=== PATIENT | female | born 1945 | race Caucasian/White ===

== ENCOUNTER 2020-05-13 00:45 | Outpatient (CLI) | payer MEDICARE, SELFPAY ==
[2020-05-13 19:14] LABS: SARS-CoV-2 RNA PCR Negative
== END 2020-05-13 00:46 | disposition home or self-care (01) ==
LOC: ANHCOVIDDT 00:45
PROVIDERS: PCP Family Medicine; Visit Provider Internal Medicine Gastroenterology
DX: Z01.818 Encounter for other preprocedural examination (principal); Z20.828 Contact with and (suspected) exposure to other viral communicable diseases
CPT/HCPCS: 87635; C9803; U0003

== ENCOUNTER 2020-05-17 01:02 | Day surgery (SDC) | payer MEDICARE, SELFPAY ==
[2020-05-08 15:32] VITALS: BMI 22.6
[2020-05-17 07:52] VITALS: BP 120/58; PULSE 84; RESP 16; TEMP 36.7; O2SAT 97
[2020-05-17] MEDS: LACTATED RINGERS 1,000 ML 150 ML IV CONT (08:02)
--- NOTE | 2020-05-17 08:20 | WPDANESEPPF ---
Anes - Initial Pre Proc Eval Procedure: Operation Date: 05/17/20 09:00 Proposed Procedures p Esophagogastroduodenoscopy - Anand James MD Date/Time: 05/17/20 08:20 Surgeon: Anand James MD Pre Op Diagnosis: Dysphagia Patient Data Age: 74 Gender: F Height: 5 ft 2.5 in Weight: 58.7 kg Last Vital Signs Temp 98.1 F 05/17/20 07:52 Pulse 84 05/17/20 07:52 Resp 16 05/17/20 07:52 BP 120/58 L 05/17/20 07:52 Pulse Ox 97 05/17/20 07:52 Allergies Allergy/AdvReac Type Severity Reaction Status Date / Time levothyroxine AdvReac Mild Nausea Verified 05/17/20 07:50 Home Medications Medication Instructions Recorded Confirmed Type celecoxib 200 mg capsule See Rx Instructions .ROUTE 10/27/19 05/17/20 Rx .COMPLEX #90 cap omega-3 fatty acids 1,000 mg 1,000 mg PO DAILY 10/27/19 05/17/20 History capsule famotidine 20 mg tablet 20 mg PO BID tablet 11/30/19 05/17/20 History multivit with 1 tablet PO DAILY 11/30/19 05/17/20 History rmdfdzbg-afpf-VE-lutein 8 mg iron-400 mcg-300 mcg tablet estradiol 0.5 mg tablet 0.5 mg PO DAILY #90 tablet 12/29/19 05/17/20 Rx Osteo Bi-Flex 1 tab-cap PO BID 05/08/20 05/17/20 History calcium carbonate-vitamin D3 1 tablet PO BID 05/08/20 05/17/20 History [Calcium 600 with Vitamin D3] Patient hx anesthesia problems: none Family hx anesthesia problems: none PMFSH Past Medical History Medical History (Updated 11/10/19 @ 09:30 by Ashley Rowan MD) Arthritis of knee, right ortho visit: 2.17.20 knee injection ( kenalog 20mg/lidocaine 1% (4cc) Chronic right-sided low back pain with left-sided sciatica Community acquired pneumonia of both lungs Screening for colorectal cancer 6.2.20 cologuard negative 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 Bernstein/ 2020/L 4-5, L5-21 Family History Family History (Updated 10/17/17 @ 15:51 by DOCTOR UNKNOWN) Sibling Patient's brother is , Onset Age: 60 Father Family history of cardiovascular disease, Onset Age: 72 Mother Family history of arthritis, Onset Age: 94 Social History Social History Alcohol intake: current Drinks per week: 0 Alcohol use details: 1 DRINK EVERY COUPLE OF MONTHS Substance use: never Substance use type: does not use Living arrangements: alone Spiritual care concerns: No Anes - Eval Final PreProcedure Day of Procedure 05/17/20 08:20 Patient weight: normal Heart: regular rate and rhythm Lungs: clear to auscultation Airway: Mallampati scale class II Neurological: alert and oriented Last oral intake: >/= 8 hours ASA classification: II Emergent: no Anesthetic plan: proceed Anesthesia type and monitoring: general GIVS and standard monitoring Informed Consent: The patient's anesthetic plan and its attendant risks and benefits were discussed with the patient/family/POA. Questions were solicited and answers provided to the satisfaction of the patient/family/POA.
--- NOTE | 2020-05-17 08:22 | WPDGICN ---
Assessment and Plan Assessment and plan (1) Dysphagia: Code(s): R13.10 - Dysphagia, unspecified Status: Acute Assessment and Plan: Patient complains of difficulty swallowing with food catching mid substernal portion of the chest. This seems most consistent with GE reflux disease plan is for EGD to exclude stricture. Further recommendations including treatment will be given after endoscopy. Currently patient is on famotidine. She may benefit from proton pump inhibitor therapy. Anti-reflux measures should be implemented. (2) GERD with esophagitis: Code(s): K21.0 - Gastro-esophageal reflux disease with esophagitis Status: Acute GI Consult Note Consult date/time: 05/17/20 08:22 HPI: Gracie Sebastian is a 74 year old female Complains of difficulty swallowing. She states she has had symptoms for some time. Symptoms of difficulty swallowing have worsened over the last 2 months. She states that foods particularly solid food will hang up in the mid substernal portion of the chest. She also complains of epigastric pain regurgitation. She denies any bleeding or weight loss. Family history is significant for a hiatal hernia in her mother. 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 Bernstein/ 2019/L 4-5, L5-21 Family History Family History (Updated 10/17/17 @ 15:51 by DOCTOR UNKNOWN) Sibling Patient's brother is , Onset Age: 60 Father Family history of cardiovascular disease, Onset Age: 72 Mother Family history of arthritis, Onset Age: 94 Social History Social History Alcohol intake: current Drinks per week: 0 Alcohol use details: 1 DRINK EVERY COUPLE OF MONTHS Substance use: never Substance use type: does not use Living arrangements: alone Spiritual care concerns: No Meds Home Medications and Allergies Home Medications Medication Instructions Recorded Confirmed Type celecoxib 200 mg capsule See Rx Instructions .ROUTE 10/27/19 05/17/20 Rx .COMPLEX #90 cap omega-3 fatty acids 1,000 mg 1,000 mg PO DAILY 10/27/19 05/17/20 History capsule famotidine 20 mg tablet 20 mg PO BID tablet 11/30/19 05/17/20 History multivit with 1 tablet PO DAILY 11/30/19 05/17/20 History twbdjhik-gwzk-PX-lutein 8 mg iron-400 mcg-300 mcg tablet estradiol 0.5 mg tablet 0.5 mg PO DAILY #90 tablet 12/29/19 05/17/20 Rx Osteo Bi-Flex 1 tab-cap PO BID 05/08/20 05/17/20 History calcium carbonate-vitamin D3 1 tablet PO BID 05/08/20 05/17/20 History [Calcium 600 with Vitamin D3] Allergies Allergy/AdvReac Type Severity Reaction Status Date / Time levothyroxine AdvReac Mild Nausea Verified 05/17/20 07:50 Vital Signs Vital Signs - 24 hr 05/17/20 07:52 Temperature 98.1 F Pulse Rate 84 Respiratory Rate 16 Blood Pressure 120/58 L Pulse Oximetry 97 Exam Narrative: Exam Narrative: Physical exam reveals patient to be alert. Vital signs stable. HEENT exam unremarkable. Lungs are clear to auscultation and percussion. Heart is without murmur or extra sounds. Abdominal exam bowel sounds are present soft nontender with no organomegaly. Digital external rectal exam is normal.
[2020-05-17] MEDS: BENZOCAINE (*SP) 60 ML SPRAY CAN (HURRICAINE) 1 SPRAY MUCOUS MEM (08:58)
[2020-05-17 09:08] VITALS: BP 95/58; PULSE 79; RESP 20; O2SAT 100
[2020-05-17 09:18] VITALS: BP 117/65; PULSE 67; RESP 20; O2SAT 97
[2020-05-17 09:28] VITALS: BP 111/65; PULSE 69; RESP 19; O2SAT 99
== END 2020-05-17 09:38 | disposition home or self-care (01) ==
PROVIDERS: PCP Family Medicine; Visit Provider Internal Medicine Gastroenterology
PROC: 0DJ08ZZ Inspection of Upper Intestinal Tract, Via Natural or Artificial Opening Endoscopic (ICD-10-PCS; CPT 43235; principal; 2020-05-17 09:00)
DX: R13.10 Dysphagia, unspecified (principal); K21.00 Gastro-esophageal reflux disease with esophagitis, without bleeding
CPT/HCPCS: 43239; 43450; 87081; C9803; J2704; J7120; U0003

== ENCOUNTER → 2020-06-23 07:49 | Outpatient (CLI) | payer MEDICARE, SELFPAY ==
--- NOTE | ~2020-06-23 | US_ITS ---
EXAMINATION: US right upper quadrant EXAM DATE: 06/23/2020 08:17 INDICATION: Epigastric pain. TECHNIQUE: Multiple grayscale and Doppler images of the abdomen right upper quadrant were obtained (b y a technologist who performed the scan) and subsequently reviewed. There is no prior study for chavo rubio. FINDINGS: The pancreatic head and body are normal in appearance. The pancreatic tail is not visualized. The l iver has normal echogenicity and contour. There are no focal liver lesions identified. There is no evidence of intrahepatic biliary duct dilation. Portal venous flow was seen in the hepatopedal, nor mal direction and has normal Doppler waveform. No right-sided hydronephrosis. Common bile duct measures 3 mm, which is normal. The gallbladder wall is normal in thickness, with ex pected amount of distention. No sonographic evidence of pericholecystic fluid. There is an echogeni c focus in the posterior dependent aspect of the gallbladder which reportedly was nonmobile measuring about 7 mm. This could be a small polyp. There is some other echogenic material, small amount of gal lbladder debris without calcified cholelithiasis. Technologist performing exam reports patient did n ot demonstrate sonographic Lynn's sign. Please note that this sign is less reliable in patients wh o have received pain medication. IMPRESSION: 1. Small gallbladder polyp; consider 6-12 month follow-up right upper quadrant sonogram. Reviewed, dictated and finalized at location D. ESS MANAGER
== END ==
PROVIDERS: PCP Family Medicine; Visit Provider Internal Medicine Gastroenterology
DX: R10.13 Epigastric pain (principal); K82.4 Cholesterolosis of gallbladder
CPT/HCPCS: 76705

== ENCOUNTER → 2020-10-05 11:03 | Outpatient (CLI) | payer MEDICARE, SELFPAY ==
--- NOTE | ~2020-10-05 | CT_ITS ---
EXAMINATION: CT abdomen pelvis wo con DATE: 10/05/2020 11:17 INDICATION: Gastroesophageal reflux disease. TECHNIQUE: Computed tomography (CT) of the abdomen and pelvis was performed without intravenous contr ast. The dose-length product was 297.23 mGy-cm. Automated exposure control and iterative reconstructi on technique were employed. COMPARISON: None. FINDINGS: There is a 3 mm left lower lobe nodule, image 13. There is a 3 mm left lower lobe nodule, i mage 12. There are calcified granulomas in the left lower lobe. Heart size is normal. No significant pleural or pericardial effusion. There is atherosclerosis. No aneurysm. There are surgical changes in the pelvis. No renal stones or hydronephrosis. The liver, spleen, pancreas, adrenal glands and right kidney are unremarkable. There is a 1 cm left r enal cyst. There is advanced lumbar spondylosis with levoscoliosis. No lymphadenopathy. Mild osteoart hritis of the hips. Moderate lumbar spondylosis. There is grade 2 spondylolisthesis at L5-S1. IMPRESSION: 1. No acute abdominal abnormality. 2: Left lower lobe nodules measuring 3 mm or less. Twelve-month follow-up CT chest recommended. Reviewed, dictated and finalized at location B. IMPRESSION: 1. No acute abdominal abnormality. 2: Left lower lobe nodules measuring 3 mm or less. Twelve-month follow-up CT ch est recommended.
== END ==
PROVIDERS: PCP Family Medicine; Visit Provider Family Medicine
DX: E03.9 Hypothyroidism, unspecified (principal); M12.9 Arthropathy, unspecified; M85.80 Other specified disorders of bone density and structure, unspecified site; Z11.59 Encounter for screening for other viral diseases; Z79.899 Other long term (current) drug therapy; K21.9 Gastro-esophageal reflux disease without esophagitis; R91.8 Other nonspecific abnormal finding of lung field
CPT/HCPCS: 74176

== ENCOUNTER → 2020-11-25 00:27 | Outpatient (CLI) | payer MEDICARE, SELFPAY ==
[2020-11-25 19:26] LABS: SARS-CoV-2 RNA PCR Negative
== END ==
PROVIDERS: PCP Family Medicine; Visit Provider Internal Medicine Gastroenterology
DX: Z01.812 Encounter for preprocedural laboratory examination (principal); Z20.822 Contact with and (suspected) exposure to COVID-19
CPT/HCPCS: C9803; U0003; U0005

== ENCOUNTER 2020-11-28 00:24 | Day surgery (SDC) | payer MEDICARE, SELFPAY ==
[2020-11-17 10:04] VITALS: BMI 22.6
[2020-11-28 08:25] VITALS: BP 111/75; PULSE 95; RESP 16; TEMP 36.1; O2SAT 100; BMI 22.6
[2020-11-28] MEDS: LACTATED RINGERS 1,000 ML 150 ML IV CONT (08:35)
--- NOTE | 2020-11-28 09:03 | WPDGICN ---
Assessment and Plan Assessment and plan (1) Diarrhea: Code(s): R19.7 - Diarrhea, unspecified Status: Acute Assessment and Plan: Colonoscopy to be performed today because rather prolonged severe diarrhea. Symptoms have begun to improve with empiric therapy. High fiber supplements recommended at this time. Further recommendations may be given after endoscopy. (2) Gallbladder polyp: Code(s): K82.4 - Cholesterolosis of gallbladder Status: Acute Assessment and Plan: Ultrasound the gallbladder in June 2020 revealed a small gallbladder polyp conservative management initially is suggested with follow-up ultrasound in 6 months. GI Consult Note Consult date/time: 11/28/20 09:03 HPI: Gracie Sebastian is a 75 year old female Presents for colonoscopy. Patient's last colonoscopy was 10 years ago. Apparently was unremarkable. Patient states that she had diarrhea that lasted for 1 month. This is improved 2 weeks ago. Her current bowel habits have returned to normal. She denies any history of abdominal pain. She has had no bleeding. She has had no weight loss. She tried no specific therapy. Stool cultures were obtained she was told these were normal. Bowel habits ultimately returned to normal. Patient's recent history is significant in November of 2019: Guard test was negative. A CT scan unremarkable in June. Ultrasound of the gallbladder was performed in June because of abdominal pain that is resolved. A small gallbladder polyp was identified. EGD because of epigastric pain in May was also unremarkable. Patient's family history is noncontributory. Colonoscopy to be performed today because rather profound diarrhea at the request of the primary care service. 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 Bernstein/ 2019/L 4-5, L5-21 Family History Family History Sibling Patient's brother is , Onset Age: 60 Father Family history of cardiovascular disease, Onset Age: 72 Mother Family history of arthritis, Onset Age: 94 Social History Social History Smoking status: Never smoker Alcohol intake: current Drinks per week: 0 Substance use: never Substance use type: does not use Living arrangements: alone Spiritual care concerns: No Meds Home Medications and Allergies Home Medications Medication Instructions Recorded Confirmed Type multivit with 1 tablet PO DAILY 11/30/19 11/17/20 History jppihbxm-oycq-LG-lutein 8 mg iron-400 mcg-300 mcg tablet estradiol 0.5 mg tablet 0.5 mg PO DAILY #90 tablet 12/29/19 11/17/20 Rx Osteo Bi-Flex 1 tab-cap PO BID 05/08/20 11/17/20 History calcium carbonate-vitamin D3 1 tablet PO BID 05/08/20 11/17/20 History [Calcium 600 with Vitamin D3] celecoxib 200 mg PO DAILY 11/17/20 11/17/20 History psyllium [Metamucil] 1 packet PO DAILY 11/17/20 11/17/20 History omeprazole 20 mg capsule,delayed 20 mg PO DAILY #30 cap 11/22/20 11/28/20 Rx release Vital Signs Vital Signs - 24 hr 11/28/20 08:25 Temperature 97.0 F L Pulse Rate 95 Respiratory Rate 16 Blood Pressure 111/75 Pulse
--- NOTE | 2020-11-28 09:14 | WPDANESEPPF ---
Anes - Initial Pre Proc Eval Procedure: Operation Date: 11/28/20 09:30 Proposed Procedures p Colonoscopy - Anand James MD Date/Time: 11/28/20 09:14 Surgeon: Anand James MD Pre Op Diagnosis: diarrhea Patient Data Age: 75 Gender: F Height: 1.6 m Weight: 57.8 kg Last Vital Signs Temp 97.0 F L 11/28/20 08:25 Pulse 95 11/28/20 08:25 Resp 16 11/28/20 08:25 BP 111/75 11/28/20 08:25 Pulse Ox 100 11/28/20 08:25 Home Medications Medication Instructions Recorded Confirmed Type multivit with 1 tablet PO DAILY 11/30/19 11/17/20 History jgihmprl-snzr-XE-lutein 8 mg iron-400 mcg-300 mcg tablet estradiol 0.5 mg tablet 0.5 mg PO DAILY #90 tablet 12/29/19 11/17/20 Rx Osteo Bi-Flex 1 tab-cap PO BID 05/08/20 11/17/20 History calcium carbonate-vitamin D3 1 tablet PO BID 05/08/20 11/17/20 History [Calcium 600 with Vitamin D3] celecoxib 200 mg PO DAILY 11/17/20 11/17/20 History psyllium [Metamucil] 1 packet PO DAILY 11/17/20 11/17/20 History omeprazole 20 mg capsule,delayed 20 mg PO DAILY #30 cap 11/22/20 11/28/20 Rx release Patient hx anesthesia problems: none Family hx anesthesia problems: none PMFSH Past Medical History Medical History Arthritis of knee, right ortho visit: 2.17.20 knee injection ( kenalog 20mg/lidocaine 1% (4cc) Chronic right-sided low back pain with left-sided sciatica Community acquired pneumonia of both lungs Screening for colorectal cancer 6.2.20 cologuard negative 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 Bernstein/ 4-5, L5-21 Family History Family History Sibling Patient's brother is , Onset Age: 60 Father Family history of cardiovascular disease, Onset Age: 72 Mother Family history of arthritis, Onset Age: 94 Social History Social History Smoking status: Never smoker Alcohol intake: current Drinks per week: 0 Substance use: never Substance use type: does not use Living arrangements: alone Spiritual care concerns: No Anes - Eval Final PreProcedure Day of Procedure 11/28/20 09:14 Patient weight: normal Heart: regular rate and rhythm Lungs: clear to auscultation Airway: Mallampati scale class II Neurological: alert and oriented Last oral intake: >/= 8 hours ASA classification: II Emergent: no Anesthetic plan: proceed Anesthesia type and monitoring: general GIVS and standard monitoring Informed Consent: The patient's anesthetic plan and its attendant risks and benefits were discussed with the patient/family/POA. Questions were solicited and answers provided to the satisfaction of the patient/family/POA.
[2020-11-28 10:06] VITALS: BP 83/45; PULSE 71; RESP 16; O2SAT 100
[2020-11-28 10:08] VITALS: BP 94/54
[2020-11-28 10:16] VITALS: BP 111/55; PULSE 70; RESP 20; O2SAT 100
[2020-11-28 10:26] VITALS: BP 127/64; PULSE 72; RESP 20; O2SAT 100
== END 2020-11-28 10:42 | disposition home or self-care (01) ==
PROVIDERS: PCP Family Medicine; Visit Provider Internal Medicine Gastroenterology
PROC: 0DJD8ZZ Inspection of Lower Intestinal Tract, Via Natural or Artificial Opening Endoscopic (ICD-10-PCS; CPT 45378; principal; 2020-11-28 09:30)
DX: K52.831 Collagenous colitis (principal); K64.8 Other hemorrhoids
CPT/HCPCS: 45380; 88305; C9803; J2704; J7120; U0003; U0005

== ENCOUNTER 2021-01-15 11:09 | Outpatient (CLI) | payer MEDICARE, SELFPAY ==
--- NOTE | ~2021-01-15 | XR_ITS ---
EXAMINATION: XR chest 2V DATE: 01/15/2021 11:42 INDICATION: Gastroesophageal reflux disease TECHNIQUE: PA and lateral views of the chest are obtained. COMPARISON: 12/17/2016 FINDINGS: The lungs are free of acute opacities. There is no pleural effusion or pneumothorax. The ca rdiomediastinal silhouette is normal. There is mild thoracic spondylosis. Calcified breast implants a re noted. IMPRESSION: 1. No acute cardiopulmonary abnormality. Reviewed, dictated and finalized at location B.
--- NOTE | 2021-01-15 11:50 | ECG_ITS ---
Measurements Intervals [place] Rate: 61 P: 75 OK: 172 QRS: -23 QRSD: 91 T: 61 QT: 394 QTc: 398 Interpretive Statements SINUS RHYTHM ATRIAL PREMATURE COMPLEX BASELINE ARTIFACT- V3 BORDERLINE ECG Electronically Signed On 01-15-2021 12:26:02 CDT by Tom Dooley D.O.
== END 2021-01-15 11:10 | disposition home or self-care (01) ==
PROVIDERS: PCP Family Medicine
DX: Z01.818 Encounter for other preprocedural examination (principal); R94.31 Abnormal electrocardiogram [ECG] [EKG]
CPT/HCPCS: 71046; 93005

== ENCOUNTER → 2021-01-26 03:59 | Outpatient (CLI) | payer MEDICARE, SELFPAY ==
[2021-01-26 20:12] LABS: SARS-CoV-2 RNA PCR Negative
== END ==
PROVIDERS: PCP Family Medicine; Visit Provider Family Medicine
DX: R68.89 Other general symptoms and signs (principal); Z20.822 Contact with and (suspected) exposure to COVID-19
CPT/HCPCS: C9803; U0003; U0005

== ENCOUNTER → 2021-03-20 13:28 | Outpatient (CLI) | payer MEDICARE, SELFPAY ==
--- NOTE | ~2021-03-20 | DEXA_ITS ---
Bone Density Report Name: Gracie Sebastian Age: 75 Sex: Female Ethnicity: White Date of : 1945 Indication: osteopenia; monitoring treatment; height loss; post menopausal Referring Provider: VIET LITTLE Study: Bone densitometry was performed. Exam Date: March 20, 2021 Accession number: [id number] Bone Density: Region BMD T-score Z-score Classification AP Spine (L1-L4) 1.026 -0.2 2.2 Normal Femoral Neck (Left) 0.732 -1.1 1.0 Osteopenia Total Hip (Left) 0.814 -1.1 0.7 Osteopenia Femoral Neck (Right) 0.694 -1.4 0.7 Osteopenia Total Hip (Right) 0.794 -1.2 0.5 Osteopenia Total Hip Mean 0.804 -1.2 0.6 Osteopenia World Health Organization criteria for BMD impression classify patients as: Normal (T-score at or above -1.0), Osteopenia (T-score between -1.0 and -2.5), or Osteoporosis (T-score at or below -2.5). 10-year Fracture Risk: FRAX not reported because: Treated for osteoporosis Previous Exams: Region Exam Age BMD T-score BMD Change BMD Change Date g/cm2 vs Baseline vs Previous Total Hip(Left) 03/20/2021 75 0.814 -1.1 0.001 0.001 03/18/2019 73 0.813 -1.1 Total Hip(Right) 03/20/2021 75 0.794 -1.2 -0.015 -0.015 03/18/2019 73 0.809 -1.1 *Denotes significance at 95% confidence level, LSC for Total Hip = 0.027 g/cm2 Clinical Information Provided by Patient: Is being treated for osteoporosis Has used the following medications: HRT (i.e. estrogen/hormone therapy), Vitamin D, Calcium Patient maximum height was 64 Menopause Age: 41 Drinks caffeinated beverages Onset of menses at age 10 Number of children 1 Impression: The patient has low bone mass, based on the Right Femoral Neck T-score. No significant bone loss was observed. Discussion: PATIENT UNDER TREATMENT WITH NO SIGNIFICANT BMD LOSS SINCE LAST EXAM. In an untreated patient, BMD typically declines with age. A lack of decline or gain is usually a sign that treatment is efficacious and fracture risk is reduced. It is important to ask patients whether they are taking their medications and to encourage continued and appropriate compliance with their osteoporosis therapies to reduce fracture risk. It is also important to review their risk factors and encourage appropriate calcium and vitamin D intakes, exercise, fall prevention and other lifestyle measures. Follow-Up: Consider a repeat BMD and Vertebral Fracture Assessment (VFA) exam in 2 years or sooner if medically necessary, to re
--- NOTE | ~2021-03-20 | MM_ITS ---
EXAMINATION: MM scrn usha implant BI w philipp HISTORY: Screening mammogram TECHNIQUE: Craniocaudal and mediolateral oblique 3-D tomosynthesis images with implant displacement a nd synthetic 2-D images were generated. Craniocaudal and mediolateral oblique views of the breasts wi thout implant displacement were obtained using full field digital mammography. CAD analysis was submi tted and interpreted. COMPARISON: 04/07/2015 BREAST PARENCHYMAL COMPOSITION: There are scattered areas of fibroglandular density. FINDINGS: There are subglandular silicone implants. There is no evidence of suspicious mass, calcific ation, or architectural distortion to suggest malignancy in either breast. There has been no suspicio us interval change. IMPRESSION: 1. No mammographic evidence of malignancy. 2. Recommend routine screening mammography in one year. BI-RADS Category 1: Negative Reviewed, dictated and finalized at location A.
== END ==
PROVIDERS: PCP Family Medicine; Visit Provider Family Medicine
DX: E03.9 Hypothyroidism, unspecified (principal); Z78.0 Asymptomatic menopausal state; Z12.31 Encounter for screening mammogram for malignant neoplasm of breast; M85.852 Other specified disorders of bone density and structure, left thigh; M85.851 Other specified disorders of bone density and structure, right thigh
CPT/HCPCS: 77063; 77067; 77080

== ENCOUNTER → 2021-11-12 14:10 | Outpatient (CLI) | payer MEDICARE, SELFPAY ==
--- NOTE | ~2021-11-12 | CT_ITS ---
EXAMINATION: CT diagnostic chest wo con DATE: 11/12/2021 14:25 INDICATION: Left lower lobe pulmonary nodules none/ CT abdomen pelvis TECHNIQUE: Computed tomography (CT) of the chest was performed without intravenous contrast. Automate d exposure control and iterative reconstruction technique were employed. Exam dose: 140.78 mGy-cm to too exam DLP. COMPARISON: 01/15/2021 2 view chest / CT abdomen pelvis FINDINGS: There are numerous areas of scarring scattered throughout both lungs, particularly at the a pices and upper lobes, including fibrocalcific scarring at the left apex. There is moderate emphysema. No pulmonary infiltrate or consolidation,. Normal heart size. No pericardial or pleural effusion. Prominent peripheral calcification of the bilateral breast implants. No suspicious osteolytic or osteoblastic lesions are noted. IMPRESSION: Moderate emphysema and bilateral pulmonary scarring; [address] imaging is rec ommended. Reviewed, dictated and finalized at Location A. Reviewed, dictated and finalized at location A. IMPRESSION: Moderate emphysema and bilateral pulmonary scarring; 6 month follo w up CT imaging is recommended.
== END ==
PROVIDERS: PCP Family Medicine; Visit Provider Family Medicine
DX: R91.8 Other nonspecific abnormal finding of lung field (principal); J43.9 Emphysema, unspecified
CPT/HCPCS: 71250

== ENCOUNTER 2021-12-20 13:39 | Outpatient (CLI) | payer MEDICARE, SELFPAY ==
--- NOTE | 2021-12-28 15:46 | WPDPFTINT ---
PFT Procedure Performed PFT Procedure Performed Spirometry with Pre/Post Bronchodilator Plethysmography (Lung Vol) Diffusing Cap (DLCO) Flow Vol Loop PFT Interpretation DOS: 12/20/2021 REQUESTING: Ashley Rowan MD REASON FOR TESTING: chronic cough, emphysema PULMONARY FUNCTION TESTS Results are reliable and reproducible Spirometry: pre bronchodilator FEV1 is 67% predicted, 1.29 L, decreased. Pre bronchodilator FVC is 2.55 L, normal. FEV1/FVC ratio is 51% decreased and this is consistent with airflow obstruction. The FEF 25-75% is 23% predicted, 0.37 L, reduced. After bronchodilator administration there is 11% increase in the FEV1. According to the ATS guidelines, this is not statistically significant as the increase must be 12%, however the absolute amount is 140 ml. The AAX15-07% increases by 29%. Lung volumes: total lung capacity is increased to 125%, mild hyperinflation. Functional reserve capacity is 157%, 4.25 L, increased. ERV is 110%, 0.91 L, normal. Residual volume 155%, 3.37 L increased consistent with moderate air trapping. RV/TLC is increased 57% also consistent with air trapping. Airway resistance increased, 306%. Diffusion: DLCO 71%, mildly reduced.DLCO/VA normal 97%. Flow volume loop: There is scooping of the expiratory limb consistent with airflow obstruction. IMPRESSION: mild airflow obstruction which is severe in the small airways, borderline response to bronchodilator, mild hyperinflation, moderate air trapping and mild diffusion impairment. in the proper clinical setting, this pattern may represent COPD or asthma-COPD overlap. Lack of response to bronchodilator should not preclude use if clinically indicated. Diamante Alas MD
== END 2021-12-20 13:40 | disposition home or self-care (01) ==
PROVIDERS: PCP Family Medicine; Visit Provider Family Medicine
DX: J43.9 Emphysema, unspecified (principal); J44.9 Chronic obstructive pulmonary disease, unspecified
CPT/HCPCS: 94060; 94726; 94729

== ENCOUNTER → 2022-07-02 13:20 | Outpatient (CLI) | payer MEDICARE, SELFPAY ==
--- NOTE | ~2022-07-02 | CT_ITS ---
CT Scan of the Chest without Contrast: Clinical Indication: Abnormal CT Technique: Contiguous sections were acquired throughout the chest without intravenous contrast. Dose reduction technique was used on this scan by utilizing automated exposure control and iterative recon struction technique. The dose-length product (DLP) was 129.09 mGy-cm. COMPARISON: 11/12/2021 Findings: There is no evidence of any significant mediastinal, hilar or axillary lymphadenopathy. The mediastin al soft tissues appear normal. There is no evidence of pleural or pericardial effusion. There are several new nodules in the left lower lobe, the largest of which measures 1 cm in diameter (axial image 62). Additional smaller left lower lobe pulmonary nodule opacities are present (axial im age 74, 102). There is an additional new 1 cm irregular nodule in the right middle lobe (axial image 70). There is a new 2 cm irregular groundglass opacity in the superior segment left lower lobe (axial image 53). There is increased nodularity also in the superior segment left lower lobe (axial images 50, 52). There is a scarring and nodularity bilateral upper lobes otherwise are similar to prior exam . Images through the upper abdomen reveal no abnormalities. Impression: Several new nodular opacities in lungs bilaterally, measuring up to 1 cm in diameter, most notably in the left lower lobe and right middle lobe. Findings could reflect progressing infectious/inflammator y condition versus the possibility of neoplastic/metastatic disease. Correlation with any clinical hi story device. Follow-up CT in 3 have in 6 months recommended to reassess. Tissue sampling could be co nsidered as indicated. Additional extensive upper lobe scarring and nodularity is otherwise similar to prior exam. Reviewed, dictated and finalized at location . 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 Findings coul d reflect progressing infectious/inflammatory condition versus the possibility of neoplastic/metastatic disease. Correlation with any clinical history device. Follow-up CT in 3 have in 6 months recommended to reassess. Tissue sampling co uld be considered as indicated. Additional extensive upper lobe scarring and nodularity is otherwise similar to prior exam.
== END ==
PROVIDERS: PCP Family Medicine; Visit Provider Family Medicine
DX: R91.8 Other nonspecific abnormal finding of lung field (principal)
CPT/HCPCS: 71250

== ENCOUNTER 2022-09-23 13:33 | Outpatient (CLI) | payer MEDICARE, SELFPAY ==
--- NOTE | ~2022-09-23 | CT_ITS ---
CT Scan of the Chest without Contrast: Clinical Indication: Lung nodule Technique: Contiguous sections were acquired throughout the chest without intravenous contrast. Dose reduction technique was used on this scan by utilizing automated exposure control and iterative recon struction technique. The dose-length product (DLP) was 61.00 mGy-cm. COMPARISON: 07/02/2022 Findings: There is no evidence of any significant mediastinal, hilar or axillary lymphadenopathy. The mediastin al soft tissues appear normal. There is no evidence of pleural or pericardial effusion. Biapical scarring is similar to prior exams. There are numerous scattered small irregular pulmonary n odules and focal areas of groundglass opacity. Many of these are stable from prior exam, there are so me nodules which are new/increase, and some which are improved. Images through the upper abdomen reveal no abnormalities. Impression: Numerous small focal irregular pulmonary nodules and focal areas of groundglass opacity, with some re gions improved from prior exam, some new/progressed from prior exam, and many of which are stable. Fi ndings suggests mixed waxing and waning infectious/inflammatory process, rather than neoplastic disea se. Reviewed, dictated and finalized at location . Impression: Numerous small focal irregular pulmonary nodules and focal areas of groundglass opacity, with some regions improved from prior exam, some new/progressed from prior exam, and many of which are stable. Findings suggests mixed waxing and wa stella infectious/inflammatory process, rather than neoplastic disease.
== END 2022-09-23 13:34 | disposition home or self-care (01) ==
PROVIDERS: PCP Family Medicine; Visit Provider Nurse Practitioner Family
DX: R91.8 Other nonspecific abnormal finding of lung field (principal)
CPT/HCPCS: 71250

== ENCOUNTER 2022-12-06 10:14 | Outpatient (CLI) | payer MEDICARE, SELFPAY ==
--- NOTE | ~2022-12-06 | CT_ITS ---
CT Scan of the Chest without Contrast: Clinical Indication: Nonspecific abnormal finding of lung field, COPD Technique: Contiguous sections were acquired throughout the chest without intravenous contrast. Dose reduction technique was used on this scan by utilizing automated exposure control and iterative recon struction technique. The dose-length product (DLP) was 62.11 mGy-cm. COMPARISON: 09/23/2022 Findings: There is no evidence of any significant mediastinal, hilar or axillary lymphadenopathy. The mediastin al soft tissues appear normal. There is no evidence of pleural or pericardial effusion. Biapical scarring is present there are scattered peripheral areas of interstitial thickening and nodu larity, essentially stable from prior exam.. Images through the upper abdomen reveal no abnormalities. Impression: Scattered, predominantly peripheral areas of interstitial thickening and irregular nodularity, simila r to prior exam. Findings suggest acute on chronic infectious process. Biapical scarring. Reviewed, dictated and finalized at [facility]. Impression: Scattered, predominantly peripheral areas of interstitial thickening and irregu lar nodularity, similar to prior exam. Findings suggest acute on chronic infect ious process. Biapical scarring.
== END 2022-12-06 10:15 | disposition home or self-care (01) ==
PROVIDERS: PCP Family Medicine; Visit Provider Nurse Practitioner Family
DX: R91.8 Other nonspecific abnormal finding of lung field (principal)
CPT/HCPCS: 71250

== ENCOUNTER 2023-01-20 11:33 | Outpatient (CLI) | payer MEDICARE, SELFPAY ==
--- NOTE | ~2023-01-20 | XR_ITS ---
EXAMINATION: XR chest 2V DATE: 01/20/2023 11:51 INDICATION: Chronic obstructive pulmonary disease, unspecified. TECHNIQUE: Frontal and lateral views of the chest were obtained. COMPARISON: Chest 2 views 01/15/2021, chest CT 12/06/2022 FINDINGS: There are chronic scattered nodules in all lung zones. No pleural effusion or pneumothorax. The heart size is normal. There are bilateral breast implants. IMPRESSION: 1. Chronic scattered nodules in all lung zones, likely chronic infection. Reviewed, dictated and finalized at location A.
== END 2023-01-20 11:34 | disposition home or self-care (01) ==
PROVIDERS: PCP Family Medicine; Visit Provider Physician Assistant
DX: J44.9 Chronic obstructive pulmonary disease, unspecified (principal); R91.8 Other nonspecific abnormal finding of lung field
CPT/HCPCS: 71046

== ENCOUNTER 2023-02-03 10:55 | Outpatient (CLI) | payer MEDICARE, SELFPAY ==
--- NOTE | 2023-02-03 11:14 | ECG_ITS ---
Measurements Intervals [place] Rate: 63 P: 78 PA: 176 QRS: -9 QRSD: 85 T: 61 QT: 391 QTc: 402 Interpretive Statements SINUS RHYTHM NORMAL ECG COMPARED TO ECG 01/15/2021 11:59:17 NO SIGNIFICANT CHANGES Electronically Signed On 02-03-2023 12:06:08 CDT by Zachary Moulton M.D.
== END 2023-02-03 10:56 | disposition home or self-care (01) ==
PROVIDERS: PCP Family Medicine; Visit Provider Podiatrist Foot & Ankle Surgery
DX: Z01.810 Encounter for preprocedural cardiovascular examination (principal)
CPT/HCPCS: 93005

== ENCOUNTER 2023-06-11 13:54 | Outpatient (CLI) | payer MEDICARE, SELFPAY ==
--- NOTE | ~2023-06-11 | CT_ITS ---
EXAMINATION:CT diagnostic chest wo con DATE: 06/11/2023 14:29 INDICATION: Other disorders of lung. TECHNIQUE: Computed tomography (CT) of the chest was performed without intravenous contrast. Automate d exposure control and iterative reconstruction technique were employed. The dose-length product (DLP ) was 136.35 mGy-cm. COMPARISON: Chest CT 12/06/2022, 11/12/2021 FINDINGS: There is chronic scarring at the lung apices. There is mild bronchiectasis in the inferior lungs. There are chronic scattered nodules in the lungs measuring up to 7 mm in left upper lobe. A ca lcified right lung nodule and calcified right hilar lymph nodes are consistent with old granulomatous disease. No pleural effusion. The heart size is normal. No pericardial effusion. Breast implants are noted. There is a small sliding hernia. Calcifications in the spleen are consistent with old granulo matous disease. There is a 13 mm cyst in left kidney. There is mild thoracic spondylosis and severe l umbar spondylosis. IMPRESSION: 1. Chronic pulmonary nodules and mild bilateral bronchiectasis, likely chronic infection such as Myco bacterium avium intracellulare (AIDAN). Reviewed, dictated and finalized at location E. 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 Chronic pulmonary nodules and mild bilateral bronchiectasis, likely chronic infection such as Mycobacterium avium intracellulare (AIDAN).
== END 2023-06-11 13:55 | disposition home or self-care (01) ==
PROVIDERS: PCP Family Medicine; Visit Provider Internal Medicine Critical Care Medicine
DX: J98.4 Other disorders of lung (principal); J47.9 Bronchiectasis, uncomplicated; R91.8 Other nonspecific abnormal finding of lung field
CPT/HCPCS: 71250

== ENCOUNTER 2023-12-03 09:53 | Outpatient (CLI) | payer MEDICARE, SELFPAY ==
--- NOTE | ~2023-12-03 | XR_ITS ---
XR chest 2V Ordering provider: Yunior Portillo APRN History: 78 years Female with . R06.09 - CONGESTION, COUGH. HX PNEUMONIA . Comparison: January 20, 2023 FINDINGS: Bilateral breast implants. MEDIASTINUM: The cardiac silhouette is not enlarged. LUNGS: No infiltrates, effusions or pneumothorax. Underlying emphysematous changes. OTHER: No free air under the diaphragm. Degenerative changes of the spine. IMPRESSION: No acute cardiopulmonary pathology. Reviewed, dictated and finalized at location A.
== END 2023-12-03 09:54 | disposition home or self-care (01) ==
LOC: ANHIMG 09:54
PROVIDERS: PCP Family Medicine; Visit Provider Nurse Practitioner Family
DX: R05.9 Cough, unspecified (principal); R06.09 Other forms of dyspnea
CPT/HCPCS: 71046

== ENCOUNTER 2023-12-18 13:11 | Outpatient (CLI) | payer MEDICARE, SELFPAY ==
--- NOTE | ~2023-12-18 | XR_ITS ---
Clinical Indication: Cough PA and lateral views of the chest: Comparison: 12/03/2023 Findings: The lungs are clear, without evidence of focal consolidation or pleural effusion. Probable COPD. Cardiomediastinal silhouette is within normal limits. Bones and soft tissues are unremarkable. Impression: Clear lungs. Probable COPD. Reviewed, dictated and finalized at location . Impression: Clear lungs. Probable COPD.
== END 2023-12-18 13:12 | disposition home or self-care (01) ==
PROVIDERS: PCP Family Medicine; Visit Provider Nurse Practitioner Family
DX: R05.9 Cough, unspecified (principal); R06.00 Dyspnea, unspecified
CPT/HCPCS: 71046

== ENCOUNTER 2023-12-20 10:27 | Emergency (ER) | payer MEDICARE, SELFPAY ==
[2023-12-20 10:37] VITALS: BP 127/69; PULSE 76; RESP 16; TEMP 36.5; O2SAT 99
--- NOTE | 2023-12-20 11:01 | ED.DENTAL ---
HPI - Dental/Oral General Chief complaint: Dental/Oral Stated complaint: COUGH/CONGESTION/SWOLLEN GLANDS/MOUTH SORES Time Seen by Provider: 12/20/23 11:01 Source: patient History of Present Illness HPI Narrative: patient presents with complaints of mouth sores that she noticed today. She reports that she has just recently finished a course of antibiotics, and is in the process of taking steroids. She denies any fever, chills, sweats. She does complain that she feels as though her lymph nodes are swollen. Related Data Home Medications Medication Instructions Recorded Confirmed sluwkfcz-vqjg-[id number] 8 mg-folic 400 1 tablet PO DAILY 11/30/19 12/20/23 mcg-K 50 mcg-lutein 300 mcg tablet (Centrum Silver Women) Osteo Bi-Flex 1 tab-cap PO BID 05/08/20 12/20/23 calcium carbonate 600 mg-vitamin 1 tablet PO BID 05/08/20 12/20/23 D3 5 mcg (200 unit) tablet dlaqeefg-gqyxuh-iguup extract 5 2 cap PO BIDWMEAL 09/26/22 12/20/23 mg-6 mg-150 mg capsule (Fruit and Vegetable Daily) lifitegrast 5 % eye drops in a 1 drp EACH EYE QPM 12/02/23 12/20/23 dropperette (Xiidra) budesonide-formoterol HFA 80 2 puff inhalation BID 12/20/23 12/20/23 mcg-4.5 mcg/actuation aerosol inhaler (Breyna) Allergies Allergy/AdvReac Type Severity Reaction Status Date / Time No Known Allergies Allergy Verified 12/20/23 10:29 Review of Systems Review of Systems: All systems reviewed & are unremarkable except as noted in HPI and below Constitutional: Constitutional: Reports no additional constitutional complaints ENT: Reports as per HPI Cardiovascular: Cardiovascular: Reports no additional cardiovascular complaints Respiratory: Respiratory: Reports cough Gastrointestinal: Gastrointestinal: Reports no additional gastrointestinal complaints [facility] Past Medical History Medical History Arthritis of knee, right ortho visit: 07.26.19 knee injection ( kenalog 20mg/lidocaine 1% (4cc) 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 Bernstein/ 2019/L 4-5, L5-21 Family History Family History Sibling Patient's brother is , Onset Age: 60 Father Family history of cardiovascular disease, Onset Age: 72 Mother Family history of arthritis, Onset Age: 94 Social History Social History Smoking status: Never smoker Alcohol intake: current Drinks per week: 0 Alcohol use details: 1 DRINK EVERY COUPLE OF MONTHS Substance use: never Substance use type: does not use Lack of Transportation: No Lack of Food: Never True Current Housing: I Have Housing Concerned About Future Housing: No Difficulty Paying Gas/Electric Bills: No Difficulty Paying for Meds: No Currently Unemployed: No Education: Master's Degree or Higher Difficulty w/ Childcare or Family Care: No Living arrangements: alone Spiritual care concerns: No Exam Const: General: cooperative, no acute distress, alert and awake Orientation/consciousness: oriented to person, oriented to place and oriented to time HENMT: Head: normal to inspection Mouth: Yes other ( Multiple blisters noted to tongue) Eyes: General: appearance normal, both eyes and all related structures Resp: Effort & Inspection: normal respiratory effort and able to speak in complete sentences Auscultation: clear to auscultation bilaterally, no crackles, no rales
== END 2023-12-20 11:13 | disposition home or self-care (01) ==
PROVIDERS: Emergency Provider Nurse Practitioner Family; PCP Nurse Practitioner Family
DX: B08.4 Enteroviral vesicular stomatitis with exanthem (principal); J44.9 Chronic obstructive pulmonary disease, unspecified; M17.11 Unilateral primary osteoarthritis, right knee; M47.812 Spondylosis without myelopathy or radiculopathy, cervical region; M47.816 Spondylosis without myelopathy or radiculopathy, lumbar region
CPT/HCPCS: 99211; G0463

== ENCOUNTER 2024-04-26 13:14 | Outpatient (CLI) | payer MEDICARE, SELFPAY ==
--- NOTE | ~2024-04-26 | XR_ITS ---
XR chest 2V Ordering provider: Yunior Portillo APRN History: 78 years Female with . COUGH X 1 MONTH, HX COPD AND ASTHMA, NON SMOKER, NO SURGERY . Comparison: None. FINDINGS: Bilateral breast implants. MEDIASTINUM: The cardiac silhouette is not enlarged. LUNGS: No infiltrates, effusions or pneumothorax. Emphysematous and fibrotic changes are seen. Apical pleural thickening. OTHER: No free air under the diaphragm. IMPRESSION: No acute cardiopulmonary pathology. Reviewed, dictated and finalized at location A. ION TENDER
== END 2024-04-26 13:15 | disposition home or self-care (01) ==
LOC: ANHIMG 13:19
PROVIDERS: PCP Family Medicine; Visit Provider Nurse Practitioner Family
DX: R05.9 Cough, unspecified (principal)
CPT/HCPCS: 71046

== ENCOUNTER 2024-09-22 13:54 | Outpatient (CLI) | payer MEDICARE, SELFPAY ==
--- NOTE | ~2024-09-22 | MM_ITS ---
EXAMINATION: MM scrn usha implant BI w philipp HISTORY: Screening mammogram TECHNIQUE: Craniocaudal and mediolateral oblique 3-D tomosynthesis images with implant displacement a nd synthetic 2-D images were generated. Craniocaudal and mediolateral oblique views of the breasts wi thout implant displacement were obtained using full field digital mammography. CAD analysis was submi tted and interpreted. COMPARISON: Comparison to multiple prior studies sequentially, with oldest reviewed study dated 03/11. BREAST PARENCHYMAL COMPOSITION: Not dense: There are scattered areas of fibroglandular density. FINDINGS: There is no evidence of suspicious mass, calcification, or architectural distortion to sugg est malignancy in either breast. There has been no suspicious interval change. IMPRESSION: 1. No mammographic evidence of malignancy. 2. Recommend routine screening mammography in one year. BI-RADS Category 1: Negative Reviewed, dictated and finalized at location B.
== END 2024-09-22 13:55 | disposition home or self-care (01) ==
LOC: MICIMG 13:54
PROVIDERS: PCP Family Medicine; Visit Provider Nurse Practitioner Family
DX: Z12.31 Encounter for screening mammogram for malignant neoplasm of breast (principal)
CPT/HCPCS: 77063; 77067

== ENCOUNTER 2025-03-23 11:30 | Emergency (ER) | payer MEDICARE, SELFPAY ==
--- NOTE | ~2025-03-23 | XR_ITS ---
EXAMINATION: XR chest 2V DATE: 03/23/2025 11:57 INDICATION: Shortness breath, cough, congestion and chest pressure TECHNIQUE: PA and lateral views of the chest were obtained. COMPARISON: Chest radiograph dated 04/26/[address] dated 06/11/2023 FINDINGS: Stable appearance of moderate biapical and mild bibasilar pleural-parenchymal scarring. Again seen is a subtle scattered reticulonodular opacities in the right upper, left mid and bilateral lower lung zones. Also unchanged is mild perihilar bronchial wall thickening. No new airspace opacities, pulmonary edema, pleural effusion or pneumothorax. The cardiomediastinal silhouette is normal. Capsular calcifications associated with bilateral breast implants. Mild thoracic and severe upper lumbar spondylosis. IMPRESSION: 1. Stable appearance of chronic biapical and bibasilar pleural-parenchymal scarring and scattered bilateral reticulonodular opacities with perihilar bronchial wall thickening which are likely sequela of chronic infection. No other evident acute cardiopulmonary disease. Reviewed, dictated and finalized at location A. IMPRESSION: 1. Stable appearance of chronic biapical and bibasilar pleural-parenchymal scar ring and scattered bilateral reticulonodular opacities with perihilar bronchial wall thickening which are likely sequela of chronic infection. No other eviden t acute cardiopulmonary disease.
--- NOTE | 2025-03-23 11:46 | ED.GENADULT ---
HPI - General Adult General Chief complaint: Upper Respiratory Infection Stated complaint: COUGH Source: patient Mode of arrival: ambulatory Limitations: no limitations History of Present Illness HPI narrative: Patient presents for evaluation of respiratory symptoms. She indicates approximately 1 week ago she developed cold symptoms with sinus congestion and nasal drainage. Four days ago she developed a productive cough of yellow sputum with wheezing, shortness of breath, chest tightness /pressure. She is under the care of pulmonology and states that they believe she has asthma. She does not smoke. She was recently around her granddaughter was sick. She has been taking Delsym for symptoms. She has also been using albuterol inhaler as needed. No fever, chills, sore throat, nausea, vomiting, diarrhea. She took a home COVID test yesterday which was negative. Related Data Home Medications ?Medication ?Instructions ?Recorded ?Confirmed ?Last Taken ?Type pdjcnjjg-ecem-pfkq 8 mg-folic 400 1 tablet PO DAILY 11/30/19 12/01/24 11/26/20 History mcg-K 50 mcg-lutein 300 mcg tablet (Centrum Silver Women) Osteo Bi-Flex 1 tab-cap PO BID 05/08/20 12/01/24 11/26/20 History calcium 600 mg (as 1 tablet PO BID 05/08/20 12/01/24 11/26/20 History carbonate)-vitamin D3 5 mcg (200 unit) tablet rcchkezx-cjpszn-wohse extract 5 2 cap PO BIDWMEAL 09/26/22 12/01/24 Unknown History mg-6 mg-150 mg capsule (Fruit and Vegetable Daily) lifitegrast 5 % eye drops in a 1 drp EACH EYE QPM 12/02/23 12/01/24 Unknown History dropperette (Xiidra) cranberry 500 mg capsule 500 mg PO DAILY 08/23/24 12/01/24 Unknown History psyllium husk 3.4 gram/5.8 gram 1.65 g PO DAILY 12/01/24 12/01/24 Unknown History oral powder (Metamucil Sugar-Free (aspartame)) Allergies Allergy/AdvReac Type Severity Reaction Status Date / Time No Known Allergies Allergy Verified 03/23/25 11:39 Review of Systems Review of Systems: CONSTITUTIONAL: Denies fever, chills, or sweats. EYES: Denies visual changes, redness, or discharge. ENT: Reports sinus congestion and nasal drainage CARDIOVASCULAR: Denies chest pain, palpitations, or edema. RESPIRATORY: reports cough, wheezing, shortness of breath, chest tightness /pressure GASTROINTESTINAL: Denies abdominal pain, nausea, vomiting, or diarrhea. GENITOURINARY: Denies dysuria or hematuria. SKIN: Denies rash or itching. MUSCULOSKELETAL: Denies back pain, joint pain, or myalgia. NEUROLOGIC: Denies headache, numbness, dizziness, or weakness. PSYCHIATRIC: Denies anxiety or depression. 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 Bernstein/ [place]/L 4-5, L5-21 Family History Family History Sibling Patient's brother is , Onset Age: 60 Father Family history of cardiovascular disease, Onset Age: 72 Mother Family history of arthritis, Onset Age: 94 Social History Social History Smoking status: Never smoker Alcohol intake: current Drinks per week: 0 Alcohol use details: 1 DRINK EVERY COUPLE OF MONTHS Substance use: never Substance use type: does not use Lack of Transportation: No Lack of Food: Never True Current Housing: I Have Housing Concerned About Future Housing: No Difficulty Paying Gas/Electric Bills: No Difficulty Paying for Meds: No Currently Unemployed: No Education: Master's Degree or Higher Difficulty w/ Childcare or Family Care: No Living arrangements: alone Spiritual care concerns: No Exam Narrative: GENERAL: Well-appearing, well-nourished, and in no acute distress. HEAD: Normocephalic, atraumatic. EYES: PERRLA and EOMI. ENT: Nares clear, no rhinorrhea or epistaxis. Mucous membranes moist. Oropharynx without tonsillar hypertrophy exudate or other lesions. Bilateral TMs pearly lugo nonbulging NECK: Supple. No adenopathy or masses. No carotid bruits or JVD CHEST: diminished breath sounds throughout. Mild wheezing noted in right lower lobe. Cough present on exam. HEART: Regular rate and rhythm. No murmur heard. Normal peripheral pulses. ABDOMEN: Soft, nontender, nondistended, normal active bowel sounds. EXTREMITIES: Normal range of motion. No edema. SKIN: Warm, dry, no rash. NEURO: No focal deficits. Alert and oriented x3. PSYCH: Normal mood and affect. Course Course Emergency Course: This is a 79-year-old female who presented for evaluation of respiratory symptoms. COVID and influenza were negative. Chest x-ray with chronic abnormalities with no acute cardiopulmonary disease. She was given steroids and nebulizer treatment. Exam is consistent with bronchitis. Discharge with prednisone. Follow-up with primary provider. Go to the ER for worsening symptoms. Patient in agreement with plan care. Level of Care: Express Care Visit Medical Decision Making Lab Data Labs: Lab Results 03/23/25 Range/Units 12:04 POC Influenza A Ag Negative (Negative) POC Influenza B Ag Negative (Negative) POC SARS CoV-2 Ag Negative (Negative) Imaging Data Radiologist's impression: EXAMINATION: XR chest 2V DATE: 03/23/2025 11:57 INDICATION: Shortness breath, cough, congestion and chest pressure TECHNIQUE: PA and lateral views of the chest were obtained. COMPARISON: Chest radiograph dated 04/26/[address] dated 06/11/2023 FINDINGS: Stable appearance of moderate biapical and mild bibasilar pleural-parenchymal scarring. Again seen is a subtle scattered reticulonodular opacities in the right upper, left mid and bilateral lower lung zones. Also unchanged is mild perihilar bronchial wall thickening. No new airspace opacities, pulmonary edema, pleural effusion or pneumothorax. The cardiomediastinal silhouette is normal. Capsular calcifications associated with bilateral breast implants. Mild thoracic and severe upper lumbar spondylosis. IMPRESSION: 1. Stable appearance of chronic biapical and bibasilar pleural-parenchymal scarring and scattered bilateral reticulonodular opacities with perihilar bronchial wall thickening which are likely sequela of chronic infection. No other evident acute cardiopulmonary disease. Discharge Plan Discharge Clinical Impression: Bronchitis Patient Disposition: Home Condition: Stable Instructions: Antibiotic Form, Acute Bronchitis (ED) Patient Language: Malian Prescriptions: New prednisone 50 mg tablet 50 mg PO DAILY Qty: 5 0RF No Action Metamucil Sugar-Free (aspart) 3.4 gram/5.8 gram powder 1.65 g PO DAILY Centrum Silver Women 8 mg iron-400 mcg-300 mcg tablet 1 tablet PO DAILY Fruit and Vegetable Daily 5-6-150 mg capsule 2 cap PO BIDWMEAL Xiidra 5 % dropperette 1 drp EACH EYE QPM Rx Instructions: administer approximately 12 hours apart cranberry 500 mg capsule 500 mg PO DAILY Rx Instructions: administer with meals calcium carbonate-vitamin D3 [Calcium 600 with Vitamin D3] 600 mg(1,500mg) -200 unit Tablet 1 tablet PO BID Osteo Bi-Flex 1 tab-cap PO BID omeprazole 20 mg capsule,delayed release(DR/EC) See Rx Instructions .ROUTE .COMPLEX Qty: 90 1RF Dose Instruction: Take 1 capsule by mouth once daily Rx Instructions: Take 1 capsule by mouth once daily estradiol 0.5 mg tablet See Rx Instructions .ROUTE .COMPLEX Qty: 90 1RF Dose Instruction: Take 1 tablet by mouth once daily Rx Instructions: Take 1 tablet by mouth once daily celecoxib 200 mg capsule See Rx Instructions .ROUTE .COMPLEX Qty: 90 1RF Dose Instruction: Take 1 capsule by mouth once daily Rx Instructions: Take 1 capsule by mouth once daily albuterol sulfate 90 mcg/actuation HFA aerosol inhaler See Rx Instructions .ROUTE .COMPLEX Qty: 9 2RF Dose Instruction: INHALE 2 PUFFS BY MOUTH EVERY 4 HOURS NEEDED FOR SHORTNESS OF BREATH OR WHEEZING Rx Instructions: INHALE 1-2 PUFFS BY MOUTH EVERY 4-6 HOURS NEEDED FOR SHORTNESS OF BREATH OR WHEEZING fluticasone propionate [Flonase Allergy Relief] 50 mcg/actuation spray,suspension 2 spray intranasal DAILY Qty: 16 5RF Rx Instructions: administer into each nostril Follow-up/Referrals: Ashley Rowan MD [Primary Care Provider, Family Practice] Bandar,Yunior P., CLEARANCE COORDINATOR [Advanced Practice Nurse, Pulmonology] Time of Disposition: 12:23
[2025-03-23] MEDS: IPRATROPIUM 0.5 MG/ALBUTEROL SULFATE 2.5 MG (BASE) AMPUL.NEB 3 ML INHALATION (12:01)
[2025-03-23 12:05] LABS: EDCOVIDSCREEN Negative (Negative); EDINFLUASCREEN Negative (Negative); EDINFLUBSCREEN Negative (Negative)
[2025-03-23 12:42] VITALS: BP 126/59; PULSE 79; RESP 16; TEMP 36.4; O2SAT 95
== END 2025-03-23 12:30 | disposition home or self-care (01) ==
PROVIDERS: Emergency Provider Nurse Practitioner; PCP Family Medicine
DX: J40 Bronchitis, not specified as acute or chronic (principal); Z20.822 Contact with and (suspected) exposure to COVID-19; J44.9 Chronic obstructive pulmonary disease, unspecified; M17.11 Unilateral primary osteoarthritis, right knee; M47.812 Spondylosis without myelopathy or radiculopathy, cervical region; M47.816 Spondylosis without myelopathy or radiculopathy, lumbar region
CPT/HCPCS: 71046; 87426; 87804; 94640; 96372; 99213; G0463; J2919

== ENCOUNTER 2025-04-02 09:56 | Emergency (ER) | payer MEDICARE, SELFPAY ==
--- NOTE | ~2025-04-02 | XR_ITS ---
Examination: XR chest 2V Clinical History: cough and wheezing right lower lobe Comparison: 03/23/2025 Technique: PA and Lateral Findings: Cardiomediastinal silhouette normal size and configuration. Mild chronic scarring. No focal airspace consolidation, edema, or effusions. No acute bony abnormality. Breast implant capsular calcifications. IMPRESSION: 1. No acute cardiopulmonary findings. Reviewed, dictated and finalized at location R.
--- NOTE | 2025-04-02 10:01 | ED.GENADULT ---
HPI - General Adult General Chief complaint: Upper Respiratory Infection Stated complaint: chest and nasal amish, cough, weak Time Seen by Provider: 04/02/25 10:04 Source: patient Mode of arrival: ambulatory Limitations: no limitations History of Present Illness HPI narrative: 71-year-old female patient presents to [facility] with complaints of an ongoing cough. Patient was seen here 10 days ago and received steroids for bronchitis. Patient states that the steroids did help with the breathing but continues to have cough and a lot of sinus drainage still feeling weak. Patient denies any fevers body aches or chills that she is aware of. Patient states she has been taking ckgt-edn-vdnxdzq Mucinex for her symptoms as well as the sinus mute Mucinex. Related Data Home Medications ?Medication ?Instructions ?Recorded ?Confirmed ?Last Taken ?Type vpsqeois-dxug-aboe 8 mg-folic 400 1 tablet PO DAILY 11/30/19 12/01/24 11/26/20 History mcg-K 50 mcg-lutein 300 mcg tablet (Centrum Silver Women) Osteo Bi-Flex 1 tab-cap PO BID 05/08/20 12/01/24 11/26/20 History calcium 600 mg (as 1 tablet PO BID 05/08/20 12/01/24 11/26/20 History carbonate)-vitamin D3 5 mcg (200 unit) tablet lyixqkkx-zxkpeo-dqlqq extract 5 2 cap PO BIDWMEAL 09/26/22 12/01/24 Unknown History mg-6 mg-150 mg capsule (Fruit and Vegetable Daily) lifitegrast 5 % eye drops in a 1 drp EACH EYE QPM 12/02/23 12/01/24 Unknown History dropperette (Xiidra) cranberry 500 mg capsule 500 mg PO DAILY 08/23/24 12/01/24 Unknown History psyllium husk 3.4 gram/5.8 gram 1.65 g PO DAILY 12/01/24 12/01/24 Unknown History oral powder (Metamucil Sugar-Free (aspartame)) Allergies Allergy/AdvReac Type Severity Reaction Status Date / Time No Known Allergies Allergy Verified 04/02/25 10:01 Review of Systems Review of Systems: CONSTITUTIONAL: Denies fever, chills, or sweats. EYES: Denies visual changes, redness, or discharge. ENT: Denies rhinorrhea, congestion, sore throat, or otalgia. CARDIOVASCULAR: Denies chest pain, palpitations, or edema. RESPIRATORY: Positive cough denies dyspnea. GASTROINTESTINAL: Denies abdominal pain, nausea, vomiting, or diarrhea. GENITOURINARY: Denies dysuria or hematuria. SKIN: Denies rash or itching. MUSCULOSKELETAL: Denies back pain, joint pain, or myalgia. NEUROLOGIC: Denies headache, numbness, or weakness. PSYCHIATRIC: Denies anxiety or depression. [facility] Past Medical History Medical History Asthma-COPD overlap syndrome Screening for colorectal cancer 6.. 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 Bernstein/ 2019/L 4-5, L5-21 Family History Family History Sibling Patient's brother is , Onset Age: 60 Father Family history of cardiovascular disease, Onset Age: 72 Mother Family history of arthritis, Onset Age: 94 Social History Social History Smoking status: Never smoker Alcohol intake: current Drinks per week: 0 Alcohol use details: 1 DRINK EVERY COUPLE OF MONTHS Substance use: never Substance use type: does not use Lack of Transportation: No Lack of Food: Never True Current Housing: I Have Housing Concerned About Future Housing: No Difficulty Paying Gas/Electric Bills: No Difficulty Paying for Meds: No Currently Unemployed: No Education: Master's Degree or Higher Difficulty w/ Childcare or Family Care: No Living arrangements: alone Spiritual care concerns: No Comments At the time of my signature I agree with nursing past medical history, surgical, social, and family history. There is no relevant family history pertinent to the presenting complaint. Exam Narrative: GENERAL: Well-appearing, well-nourished, and in no acute distress. HEAD: Normocephalic, atraumatic. EYES: PERRLA and EOMI. ENT: Nares clear, no rhinorrhea or epistaxis. Mucous membranes moist. posterior pharynx with no erythema, tonsillar enlargement, exudates or lesions present. Bilateral TMs are clear no erythema or foreign bodies the canal. NECK: Supple. No lymphadenopathy CHEST: Patient has inspiratory and expiratory wheezing noted to the right lower lobe does sound very tight. Patient does have a mild inspiratory wheezing noted to the left lower lobe. Bilateral upper lobes are clear. No respiratory distress. HEART: Regular rate and rhythm. No murmur heard. Normal peripheral pulses. ABDOMEN: Soft, nontender, nondistended, normal active bowel sounds. EXTREMITIES: Normal range of motion. No edema. SKIN: Warm, dry, no rash. NEURO: No focal deficits. Alert and oriented x3. Course Course Level of Care: Express Care Visit Reevaluation(s) Reevaluation #1: re-evaluated patient after her breathing treatment had completed. Patient's lungs are clear in all 4 lobes after the breathing treatment. Discussed with patient that her x-ray is negative for any pneumonia. Discussed with patient this is most likely an ongoing bronchitis. Discussed with her we will discharge her home with a Z-Deangelo, the low dose steroid, and albuterol inhaler as well as Tessalon Perles for the cough. Discussed with patient she should also increase her vitamin C because we know that vitamin C can help repair the lining of the lungs and help boost her immunity would recommend 2000 mg in the morning and 2000 mg in the evening. Patient verbalized understanding denies any other questions or concerns at this time. Date: 04/02/25 Time: 11:14 Vital Signs Vital signs: Vital Signs Oxygen Delivery Room Air 04/02/25 10:05 Temperature 36.4 C 04/02/25 10:06 Pulse Rate 125 H 04/02/25 10:06 Respiratory Rate 18 04/02/25 10:06 Blood Pressure 116/54 L 04/02/25 10:06 Pulse Oximetry 98 04/02/25 10:06 Oxygen Delivery Room Air 04/02/25 10:06 Vital signs reviewed. Medical Decision Making MDM Narrative Medical decision making narrative: care for patient is to do another x-ray since she continues to have some bilateral lower lobe wheezing just to ensure that there is no pneumonia developing. I do see a need to do any repeat viral testing since her symptoms of being going on for about 3-4 weeks. I think bronchitis diagnosis is a reasonable diagnosis however may consider doing a Z-Deangelo at this time since symptoms have been lasting longer as well as another course of a Medrol Dosepak to help with the coughing. I will reassess patient once this has resulted. Differential Diagnosis Differential Diagnosis: Differential diagnosis: Allergic rhinitis, chronic sinusitis, tonsillitis, acute sinusitis, infectious mononucleosis, seasonal influenza, pertussis, diphtheria, meningococcal disease, viral syndrome, viral bronchitis, RSV, COVID-19 Vital Signs Vital Signs: Vital Signs Oxygen Delivery Room Air 04/02/25 10:05 Temperature 36.4 C 04/02/25 10:06 Pulse Rate 125 H 04/02/25 10:06 Respiratory Rate 18 04/02/25 10:06 Blood Pressure 116/54 L 04/02/25 10:06 Pulse Oximetry 98 04/02/25 10:06 Oxygen Delivery Room Air 04/02/25 10:06 Critical Care Time Critical Care Time Critical Care Time: No Discharge Plan Discharge Clinical Impression: Bronchitis Patient Disposition: Home Condition: Stable Instructions: Antibiotic Form, Acute Bronchitis (ED) Additional Instructions: Acute bronchitis is swelling and irritation in the air passages of your lungs. This irritation may cause you to cough or have other breathing problems. Acute bronchitis often starts because of another viral illness, such as a cold or the flu. The illness spreads from your nose and throat to your windpipe and airways. Bronchitis is often called a chest cold. Acute bronchitis lasts about 2-6 weeks and is usually not a serious illness. AFTER YOU LEAVE: Medicines: Ibuprofen or acetaminophen: These medicines help lower a fever. They are available without a doctor's order. Ask your healthcare provider which medicine is right for you. Ask how much to take and how often to take it. Follow directions. These medicines can cause stomach bleeding if not taken correctly. Ibuprofen can cause kidney damage. Do not take ibuprofen if you have kidney disease, an ulcer, or allergies to aspirin. Acetaminophen can cause liver damage. Do not drink alcohol if you take acetaminophen. Cough medicine: This medicine helps loosen mucus in your lungs and make it easier to cough up. This can help you breathe easier. Inhalers: You may need one or more inhalers to help you breathe easier and cough less. An inhaler gives your medicine in a mist form so that you can breathe it into your lungs. Ask your healthcare provider to show you how to use your inhaler correctly. Steroid medicine: Steroid medicine helps open your air passages so you can breathe easier. Take your medicine as directed. Call your healthcare provider if you think your medicine is not helping or if you have side effects. How to use an inhaler: Shake the inhaler well to make sure you get the correct amount of medicine per puff. Remove the cover from your inhaler's mouthpiece. If you are using a spacer, connect your inhaler to the flat end of the spacer. Exhale as much air from your lungs as you can. Put the mouthpiece in your mouth past your front teeth and rest it on the top of your tongue. Do not block the mouthpiece opening with your tongue. Breathe in through your mouth at a slow and steady rate. As you do this, press the inhaler to release the puff of medicine. Finish breathing in slowly and deeply as you inhale the medicine. When your lungs are full, hold your breath for 10 seconds. Then breathe out slowly through puckered lips or through your nose. If you need to take more puffs, wait at least 1 minute between each puff. Rinse your mouth with water after you use the inhaler. This may keep you from getting a mouth infection or irritation. Follow the instructions that come with your inhaler to clean it. You should clean your inhaler at least once a week. Ways to care for yourself: Avoid alcohol: Alcohol dulls your urge to cough and sneeze. When you have bronchitis, you need to be able to cough and sneeze to clear your air passages. Alcohol also causes your body to lose fluid. This can make the mucus in your lungs thicker and harder to cough up. Avoid irritants in the air: Do not smoke or allow others to smoke around you. Avoid chemicals, fumes, and dust. Wear a face mask if you must work around dust or fumes. Stay inside on days when air pollution levels are high. If you have allergies, stay inside when pollen counts are high. Avoid aerosol products. This includes spray-on deodorant, bug spray, and hair spray. Drink more liquids: Most people should drink at least 8 eight-ounce cups of water a day. You may need to drink more liquids when you have acute bronchitis. Liquids help keep your air passages moist and help you cough up mucus. Get more rest: You may feel like resting more. Slowly start to do more each day. Rest when you feel it is needed. Eat healthy foods: Eat a variety healthy foods every day. Your diet should include fruits, vegetables, breads, and protein (such as chicken, fish, and beans). Dairy products (such as milk, cheese, and ice cream) can sometimes increase the amount of mucus your body makes. Ask if you should decrease your intake of dairy products. Use a humidifier: Use a cool mist humidifier to increase air moisture in your home. This may make it easier for you to breathe and help decrease your cough. Decrease your risk of acute bronchitis: Get the vaccinations you need: Ask your healthcare provider if you should get vaccinated against the flu or pneumonia. Avoid things that may irritate your lungs: Stay inside or cover your mouth and nose with a scarf when you are outside during cold weather. You should also stay inside on days when air pollution levels are high. If you have allergies, stay inside when pollen counts are high. Avoid using aerosol products in your home. This includes spray-on deodorant, bug spray, and hair spray. Avoid the spread of germs: Wash your hands often with soap and water. Carry germ-killing gel with you. You can use the gel to clean your hands when there is no soap and water available. Do not touch your eyes, nose, or mouth unless you have washed your hands first. Always cover your mouth when you cough. Cough into a tissue or your shirtsleeve so you do not spread germs from your hands. Try to avoid people who have a cold or the flu. If you are sick, stay away from others as much as possible. Follow up with your healthcare provider as directed: Write down questions you have so you will remember to ask them during your follow-up visits. Contact your healthcare provider if: You have a fever. Your skin becomes itchy or you have a rash after you take your medicine. Your breathing problems do not go away or get worse. Your cough does not get better with treatment. You cough up blood. You have questions or concerns about your condition or care. Seek care immediately or call 911 if: You faint. Your lips or fingernails turn blue. You feel like you are not getting enough air when you breathe. You have swelling of your lips, tongue, or throat that makes it hard to breathe or swallow. Patient Language: Polish Prescriptions: New azithromycin 250 mg tablet See Rx Instructions .ROUTE .COMPLEX Qty: 6 0RF Rx Instructions: For 250 mg dose pack: take 500 mg today (day 1), then 250 mg for 4 days (days 2-5) methylprednisolone 4 mg tablets,dose pack See Rx Instructions PO .COMPLEX Qty: 21 0RF Rx Instructions: for 6 days albuterol sulfate [Ventolin HFA] 90 mcg/actuation HFA aerosol inhaler 2 puff INHALATION .Q4 hours PRN (Reason: cough) Qty: 18 0RF benzonatate 200 mg capsule 200 mg PO TID PRN (Reason: cough) 10 Days Qty: 30 0RF No Action prednisone 50 mg tablet 50 mg PO DAILY Qty: 5 0RF Metamucil Sugar-Free (aspart) 3.4 gram/5.8 gram powder 1.65 g PO DAILY Centrum Silver Women 8 mg iron-400 mcg-300 mcg tablet 1 tablet PO DAILY Fruit and Vegetable Daily 5-6-150 mg capsule 2 cap PO BIDWMEAL Xiidra 5 % dropperette 1 drp EACH EYE QPM Rx Instructions: administer approximately 12 hours apart cranberry 500 mg capsule 500 mg PO DAILY Rx Instructions: administer with meals calcium carbonate-vitamin D3 [Calcium 600 with Vitamin D3] 600 mg(1,500mg) -200 unit Tablet 1 tablet PO BID Osteo Bi-Flex 1 tab-cap PO BID estradiol 0.5 mg tablet See Rx Instructions .ROUTE .COMPLEX Qty: 90 1RF Dose Instruction: Take 1 tablet by mouth once daily Rx Instructions: Take 1 tablet by mouth once daily celecoxib 200 mg capsule See Rx Instructions .ROUTE .COMPLEX Qty: 90 1RF Dose Instruction: Take 1 capsule by mouth once daily Rx Instructions: Take 1 capsule by mouth once daily albuterol sulfate 90 mcg/actuation HFA aerosol inhaler See Rx Instructions .ROUTE .COMPLEX Qty: 9 2RF Dose Instruction: INHALE 2 PUFFS BY MOUTH EVERY 4 HOURS NEEDED FOR SHORTNESS OF BREATH OR WHEEZING Rx Instructions: INHALE 1-2 PUFFS BY MOUTH EVERY 4-6 HOURS NEEDED FOR SHORTNESS OF BREATH OR WHEEZING fluticasone propionate [Flonase Allergy Relief] 50 mcg/actuation spray,suspension 2 spray intranasal DAILY Qty: 16 5RF Rx Instructions: administer into each nostril omeprazole 20 mg capsule,delayed release(DR/EC) See Rx Instructions .ROUTE .COMPLEX Qty: 90 1RF Dose Instruction: Take 1 capsule by mouth once daily Rx Instructions: Take 1 capsule by mouth once daily Follow-up/Referrals: Ashley Rowan MD [Primary Care Provider, Family Practice] Time of Disposition: 11:08
[2025-04-02 10:06] VITALS: BP 116/54; PULSE 125; RESP 18; TEMP 36.4; O2SAT 98
[2025-04-02 10:32] VITALS: PULSE 125; RESP 18; O2SAT 98
[2025-04-02] MEDS: IPRATROPIUM 0.5 MG/ALBUTEROL SULFATE 2.5 MG (BASE) AMPUL.NEB 3 ML INHALATION (10:34)
[2025-04-02 10:48] VITALS: PULSE 95; RESP 19; O2SAT 96
== END 2025-04-02 11:11 | disposition home or self-care (01) ==
PROVIDERS: Emergency Provider Nurse Practitioner Family; PCP Family Medicine
DX: J40 Bronchitis, not specified as acute or chronic (principal); J44.9 Chronic obstructive pulmonary disease, unspecified; M17.11 Unilateral primary osteoarthritis, right knee; M47.812 Spondylosis without myelopathy or radiculopathy, cervical region; M47.816 Spondylosis without myelopathy or radiculopathy, lumbar region
CPT/HCPCS: 71046; 94640; 99213; G0463

== ENCOUNTER 2025-05-18 14:59 | Outpatient (CLI) | payer MEDICARE, SELFPAY ==
--- NOTE | 2025-05-18 | ECG_ITS ---
Test Date: 2025-05-18 15:16:16 Measurements Intervals [place] Rate: 75 P: 78 AL: 175 QRS: -51 QRSD: 100 T: 55 QT: 392 QTc: 440 Interpretive Statements SINUS RHYTHM LEFT ANTERIOR FASCICULAR BLOCK ABNORMAL ECG No previous ECG available for comparison Electronically Signed On 05-18-2025 15:34:13 WARDROBE MANAGER by Tom Dooley D.O.
--- OUTSIDE RECORDS SUMMARY | 2025-05-18 19:52 | XMS_ITS | Clinical Summary ---
Author Organization [facility] Address [address] [place] [id number] Care Team Providers Care Montessori Toddler Teacher Name Role Phone Ashley Rowan MD Primary Care Provider + Allergies No known active allergies Encounters Date Type Department Care Team Description 03/15/2025 10:30 AM CDT - 03/15/2025 11:59 PM CDT Hospital Encounter [address] [address] Chronic sinusitis, unspecified location Discharge Disposition: Discharge to home or self care from Last 3 Months Social History Tobacco Use Types Packs/Day Years Used Date Smoking Tobacco: Never Assessed Comments Unknown Sex and Gender Information Value Date Recorded Sex Assigned at Not on file Legal Sex Female 3:54 PM [employer] Gender Identity Not on file Sexual Orientation Not on file Plan of Treatment Health Maintenance Due Date Last Done Comments Depression Screening 1945 Fall Risk Assessment 1945 Hepatitis C Screening 1945 Osteoporosis Screening-Bone Density Scan 1945 Hepatitis B Screening 1964 Well Visit 65+ 11/17/2011 Pneumococcal vaccine 65+ (3 of 3 - PCV20 or PCV21) 04/07/2019 04/07/2014, 08/05/2011 Zoster Vaccine (2 of 3) 06/27/2020 05/02/2020 Influenza Vaccine (#1) 2025 , 03/29/2020, 02/10/2019, Additional history exists DTaP/Tdap/Td Vaccine (2 - Td or Tdap) 03/07/2027 03/07/2017, 02/20/2006 Procedures Procedure Name Priority Date/Time Associated Diagnosis Comments CT SINUS WO CONTRAST Schedule Routine, Read Routine (OP Routine) 03/15/2025 10:38 AM CDT Chronic sinusitis, unspecified location from Last 3 Months Results * CT Sinus WO Contrast (03/15/2025 10:38 AM CDT) Anatomical Region Laterality Modality Head and Neck N/A Computed Tomogra phy 03/17/2025 8:03 AM CDT Narrative 03/17/2025 8:30 AM CDT EXAM DESCRIPTION: CT SINUS WO CONTRAST REASON FOR STUDY: Chronic sinus drainage. Patient denies headaches or sinus pressure. No provided history of trauma or inciting and/or aggravating events. No provided past medical history. No prior sinus surgery. TECHNIQUE: Noncontrast scanning through the paranasal sinuses using bone algorithm. Reconstructed MPR images reviewed. All images stored on PACS. Automated exposure control was used as a dose optimization technique for this examination. COMPARISON: No prior imaging available at time of interpretation. FINDINGS: MAXILLARY SINUSES: No fluid levels or mucosal thickening. Ostiomeatal units patent. ETHMOID AND FRONTAL SINUSES: Frontal sinuses clear. Left mastoid air cells well aerated. Opacification of the right posterior ethmoid air cells. Frontoethmoid recesses patent. SPHENOID SINUS: No fluid levels or mucosal thickening. Sphenoethmoid recesses patent. NASAL CAVITY: Midline bony septum with left-directed bony nasal septal spur. ORBITS: No acute abnormality. [place] ocular lenses replaced bilaterally. TMJS: No acute abnormality. MASTOIDS: Well-developed and well aerated.. IACs symmetric, grossly normal. BRAIN: Poorly evaluated without overt evidence subacute abnormality. OTHER: No other significant finding. IMPRESSION: Right posterior ethmoidal paranasal sinus disease as above. THIS IS AN ELECTRONICALLY VERIFIED FINAL REPORT 03/17/2025 8:30 AM - Electronically signed by Cole Doe M.D. NEAL T: Report ID: [id number] Reading Location: [id number] Procedure Note Cole Doe MD - 03/17/2025 EXAM DESCRIPTION: CT SINUS WO CONTRAST REASON FOR STUDY: Chronic sinus drainage. Patient denies headaches orsinus pressure. No provided history of trauma or inciting and/or aggravating events. No provided past medical history. No prior sinus surgery. TECHNIQUE: Noncontrast scanning through the paranasal sinuses using bone algorithm. Reconstructed MPR images reviewed. All images stored on PACS. Automated exposure control was used as a dose optimization technique forthis examination. COMPARISON: No prior imaging available at time of interpretation. FINDINGS: MAXILLARY SINUSES: No fluid levels or mucosal thickening. Ostiomeatal units patent. ETHMOID AND FRONTAL SINUSES: Frontal sinuses clear. Left mastoid aircells well aerated. Opacification of the right posterior ethmoid air cells. Frontoethmoid recesses patent. SPHENOID SINUS: No fluid levels or mucosal thickening. Sphenoethmoid recesses patent. NASAL CAVITY: Midline bony septum with left-directed bony nasal septalspur. ORBITS: No acute abnormality. [place] ocular lenses replaced bilaterally. TMJS: No acute abnormality. MASTOIDS: Well-developed and well aerated.. IACs symmetric, grosslynormal. BRAIN: Poorly evaluated without overt evidence subacute abnormality. OTHER: No other significant finding. IMPRESSION: Right posterior ethmoidal paranasal sinus disease as above. THIS IS AN ELECTRONICALLY VERIFIED FINAL REPORT 03/17/2025 8:30 AM - Electronically signed by Cole Doe M.D. NEAL T: Report ID: [id number] Reading Location: [place] [address] Remy Juares MD IMG CT PROCEDURES Final Re sult from Last 3 Months Insurance [facility] MEDICARE ADVANTAGE [facility] MEDICARE [facility] MEDICARE Care Teams Montessori Toddler Teacher Relationship Specialty Start Date End Date Ashley Rowan MD PCP - General Family Medicine 04/14/19
== END 2025-05-18 15:00 | disposition home or self-care (01) ==
LOC: ANHCARD 15:00
PROVIDERS: PCP Family Medicine; Visit Provider Nurse Anesthetist, Certified Registered
DX: Z01.818 Encounter for other preprocedural examination (principal); I44.4 Left anterior fascicular block
CPT/HCPCS: 93005